=== PATIENT | female | born 1945 | race Caucasian/White ===

== ENCOUNTER 2018-04-19 09:49 | Emergency (ER) | payer OTHER ==
[~2018-04-19] VITALS: Ht 160 cm; Wt 63.5 kg
[~2018-04-19 09:49] MED LIST: ACET-53 PO; ACET-73 PO; ADAL40PE2 SQ; ATEN25TA PO; AZEL23SP BNOSTRILS; BALS750C PO; CALC ANTACID PO; CALCIUM/VITD PO; CROM10DR2 EACHEYE; CYAN10009 PO; DICL100G16 TP; DIET1CAP4 PO; FLUT16SP BNOSTRILS; FOLI0.4T2 PO; LAMO150T PO; LAMO25TA2 PO; LEVO75TA7 PO; LOPE2TAB57 PO; LORA0.5T PO; MEMA10TA21 PO; METH2.5T PO; OMEP40CA37 PO; SIMV20TA6 PO; TRAZ150T75 PO; [UNRECOGNIZED DRUG - OTHER] PO
[2018-04-19] MEDS ORDERED: AMLO5TAB2 PO (10:06)
[2018-04-19] MEDS ORDERED: THIO300C PO (10:06)
[2018-04-19] MEDS ORDERED: CALC-34 PO (11:19)
[2018-04-19] MEDS ORDERED: [UNRECOGNIZED DRUG - OTHER] PO (11:19)
[2018-04-19] MEDS ORDERED: ADAL40PE SQ (11:19)
[2018-04-19] MEDS ORDERED: LIDO30CR TP (11:19)
--- NOTE | 2018-04-19 11:52 | NUR ---
MSE COMPLETED, MALICK CALLED ETA FOR 1230PM . TRIP#[id number]. PT RESTING ,NO DISTRESS NOTED.
[2018-04-19] MEDS ORDERED: BENZ-38 PO (11:55)
[2018-04-19] MEDS ORDERED: ACET-53 PO (11:55)
[2018-04-19] MEDS ORDERED: TERB250T52 PO (11:55)
[2018-04-19 12:43] VITALS: BP 141/64
--- NOTE | 2018-04-19 12:44 | NUR ---
MSE COMPLETED, SBAR REPORT TO DIAGRAM CLERK. PT GIVEN ACI/COPY OF CHART. PT TOOK ALL BELONGINGS.
== END 2018-04-19 12:44 | disposition home or self-care (01) ==
LOC: ER 09:49
DX: S20.229A Contusion of unspecified back wall of thorax, initial encounter (principal); S09.90XA Unspecified injury of head, initial encounter; I10 Essential (primary) hypertension; K21.9 Gastro-esophageal reflux disease without esophagitis; E03.9 Hypothyroidism, unspecified; Z88.6 Allergy status to analgesic agent; Z88.5 Allergy status to narcotic agent; Z79.899 Other long term (current) drug therapy; Z79.891 Long term (current) use of opiate analgesic; Z79.52 Long term (current) use of systemic steroids; W01.0XXA Fall on same level from slipping, tripping and stumbling without subsequent striking against object, initial encounter; Y93.89 Activity, other specified; Y92.89 Other specified places as the place of occurrence of the external cause; Y99.8 Other external cause status
CPT/HCPCS: 70450; 72131; A4663

== ENCOUNTER 2019-11-04 16:32 | Emergency (ER) | payer OTHER, MEDICAID ==
[~2019-11-04] VITALS: Ht 160 cm; Wt 62.6 kg
[~2019-11-04 16:32] MED LIST changes: -ACET-53 PO; +ACET-54 PO; -ACET-73 PO; +ADAL40PE SQ; +AMLO5TAB9 PO; +BENZ-38 PO; +CALC-34 PO; -CALCIUM/VITD PO; -DIET1CAP4 PO; -LAMO150T PO; +LAMO150T6 PO; +LAMO25TA16 PO; -LAMO25TA2 PO; +LIDO30CR TP; -LOPE2TAB57 PO; -LORA0.5T PO; -MEMA10TA21 PO; +MEMA10TA56 PO; +OMEP40CA13 PO; -OMEP40CA37 PO; +SIMV-46 PO; -SIMV20TA6 PO; +TERB250T52 PO; +THIO300C PO; +[UNRECOGNIZED DRUG - OTHER] PO; -[UNRECOGNIZED DRUG - OTHER] PO
--- NOTE | 2019-11-04 16:50 | NUR ---
Patient BIB [id number] from [facility] for c/o high fever at facility. Patient A/Ox4. Speech is clear, speaks in complete sentences. No acute neuro deficits noted. Respiratory even and unlabored, no cough no sob. Denies any n/v/d.
[2019-11-04 17:22] LABS: BASOPHILS % (AUTO) 0.3 % (0.0-2.0); EOSINOPHILS # (AUTO) 0.1 K/uL (0.0-0.7); EOSINOPHILS % (AUTO) 0.8 % (0.0-7.0); HEMATOCRIT 34.9 % (31.2-41.9); HEMOGLOBIN 11.3 g/dL (10.9-14.3); LYMPHOCYTES # (AUTO) 0.3 K/uL (20.0-40.0); MEAN CORPUSCULAR HEMOGLOBIN 30.8 uug (24.7-32.8); MEAN CORPUSCULAR HGB CONC 33 g/dL (32.3-35.6); MEAN CORPUSCULAR VOLUME 94.9 fL (75.5-95.3); MONOCYTES # (AUTO) 0.7 K/uL (2.0-10.0); NEUTROPHILS # (AUTO) 8.5 K/uL (1.8-8.9); NEUTROPHILS % (AUTO) 88.9 % (38.5-71.5); PLATELET COUNT (AUTO) 206 K/uL (179-408); RED BLOOD CELL COUNT(AUTO) 3.68 MIL/uL (3.63-4.92); WHITE BLOOD COUNT (AUTO) 9.5 K/uL (3.8-11.8)
[2019-11-04 17:29] LABS: CARBON DIOXIDE 30 mmol/L (21-32); CHLORIDE 105 mmol/L (98-107); CREATININE 1.4 mg/dL (0.6-1.3); GLUCOSE 144 mg/dL (74-106); POTASSIUM 3.8 mmol/L (3.5-5.1); UREA NITROGEN, BLOOD 25 mg/dL (7-18)
[2019-11-04 17:35] LABS: ALANINE AMINOTRANSFERASE 13 U/L (14-59); ALKALINE PHOSPHATASE 87 U/L (50-136); ASPARTATE AMINOTRANSFERASE 15 U/L (15-37); BILIRUBIN,DIRECT 0.1 mg/dL (0.0-0.2); BILIRUBIN,TOTAL 0.3 mg/dL (0.2-1.0); TOTAL PROTEIN, SERUM 6.8 g/dL (6.4-8.2)
[2019-11-04] MEDS ORDERED: THIO300C PO (17:50)
[2019-11-04] MEDS ORDERED: AMLO5TAB9 PO (17:50)
[2019-11-04] MEDS ORDERED: ATEN50TA PO (17:50)
[2019-11-04] MEDS ORDERED: CALC-20 PO (17:51)
[2019-11-04] MEDS ORDERED: SIMV-46 PO (17:51)
[2019-11-04] MEDS ORDERED: TRAZ150T75 PO (17:51)
[2019-11-04] MEDS ORDERED: CROM10DR2 EACHEYE (17:51)
[2019-11-04] MEDS ORDERED: CALC400T29 PO (17:51)
[2019-11-04] MEDS ORDERED: FLUT16SP NS (17:51)
[2019-11-04] MEDS ORDERED: FOLI0.4T2 PO (17:51)
[2019-11-04] MEDS ORDERED: LAMO150T6 PO (17:51)
[2019-11-04] MEDS ORDERED: METH2.5T PO (17:51)
[2019-11-04] MEDS ORDERED: LOPE2CAP14 PO (17:51)
[2019-11-04] MEDS ORDERED: OMEP20TA5 PO (17:51)
[2019-11-04] MEDS ORDERED: DICL100G16 TP (17:51)
[2019-11-04] MEDS ORDERED: ADAL40PE SQ (17:51)
[2019-11-04] MEDS ORDERED: MEMA10TA PO (17:51)
[2019-11-04] MEDS ORDERED: CYAN250014 PO (17:51)
[2019-11-04] MEDS ORDERED: EUCA1LOZ37 MM (17:51)
[2019-11-04] MEDS ORDERED: LEVO25TA9 PO (17:51)
[2019-11-04] MEDS ORDERED: DEXT15DR6 OP (17:51)
[2019-11-04] MEDS ORDERED: MULT-213 PO (17:51)
[2019-11-04 17:52] LABS: *BILIRUBIN,URIN NEGATIVE (NEGATIVE); *BLOOD, URINE NEGATIVE (NEGATIVE); *CLARITY,URINE CLEAR (CLEAR); *COLOR,URINE YELLOW (YELLOW); *KETONES,URINE NEGATIVE (NEGATIVE); *UROBILINOGEN,URINE 0.2 E.U./dl (NORMAL); LEUKOCYTE ESTERASE ,URINE NEGATIVE (NEGATIVE); NITRITE, URINE NEGATIVE (NEGATIVE); UGLUCOSE NEGATIVE (NEGATIVE)
--- NOTE | 2019-11-04 18:00 | NUR ---
Sulema from [facility] contacted, she stated she will pass the case to the admitting team and have them call us back.
[2019-11-04] MEDS ORDERED: IV NORMAL SALINE 1000 ML BAG IV ONE ×2 (18:15)
[2019-11-04] MEDS ORDERED: CEFTRIAXONE 1 G in IV DEXTROSE 5% 50 ML IV ONE (18:15)
[2019-11-04] MEDS ORDERED: VANCOMYCIN IV 1,000 MG in IV DEXTROSE 5% 250 ML IV ONE (18:15)
--- NOTE | 2019-11-04 18:17 | NUR ---
Awaiting call back from [facility] for xfer information.
--- NOTE | 2019-11-04 18:17 | NUR ---
XOCHITL on the line with Dr. Jack from [facility]
[2019-11-04] MEDS ORDERED: CEFTRIAXONE /D5W 50ML IVPB **ER PYXIS IV ONE (18:40)
[2019-11-04] MEDS ORDERED: VANCOMYCIN IV 200 ML ONE (18:40)
--- NOTE | 2019-11-04 19:03 | NUR ---
Dr. Wood from [facility] on the line with XOCHITL.
--- NOTE | 2019-11-04 19:13 | NUR ---
received hand off and sbar from outgoing day shift DX FEVER ASSESSMENT (ALEXIS) ON THE LINE WITH XOCHITL BETANCOURT PENDING CALL BACK FROM RECEIVING MD FOR TRANSFER TO [facility] PT TEMP 99.7F PT IS AOX4 ABLE TO SPEAK CLEAR AND COMPLETE SENTENCES STATES SHE IS NOT SHIVERING ANYMORE IVF INFUSING AND PATENT, WITH FLUIDS AND ABX Addendum: 11/04/19 at 1931 by JULIANA IVF INFUSING AND not PATENT, WITH FLUIDS AND ABX +SIGNS OF INFILTRATION
--- NOTE | 2019-11-04 19:14 | NUR ---
Report given to GODFREY Conner
--- NOTE | 2019-11-04 19:14 | NUR ---
D/C IV [place] ON L AC APPLIED WARMCOMPRESSTO AFFECTED SITE NOTED +SIGNSOF INFILTRATION ON L AC +EDEMA ANDERYTHEMA +TENDERNESS TO SITE
--- NOTE | 2019-11-04 20:02 | NUR ---
DARRYL CALL BACK: [phone] RECEIVEING MD : DR LIO HEATON FAST FOOD SHIFT LEAD AT 2850
--- NOTE | 2019-11-04 20:09 | NUR ---
HAND OFF GIVEN TO [place] JOSEUT (ANTONY) ETA TEACHERS AIDE AT 2130 DX FEVER RECEIVING MD : DR VACA RA NAD NSR R AC G20 INFUSING 2ND BAG OF IVFLUIDS AND PIGGYBACK ABX (VANCO) TEMP AT 99.7f KEPT WARM DRY AND COMFORTABLE
--- NOTE | 2019-11-04 21:12 | NUR ---
[facility] ETA DRAFTING DETAILER AT 1340
--- NOTE | 2019-11-04 21:55 | NUR ---
TRANSPPORTED TO [facility] PRN ALS IVF INFUSING STILL TO R AC G20 (2ND BAG OF SALINE, 500ML)
== END 2019-11-04 22:00 | disposition short-term general hospital (02) ==
LOC: ER 16:44
DX: A41.9 Sepsis, unspecified organism (principal); E87.2 Acidosis; R50.9 Fever, unspecified; K21.9 Gastro-esophageal reflux disease without esophagitis; F31.9 Bipolar disorder, unspecified; E03.9 Hypothyroidism, unspecified; I12.9 Hypertensive chronic kidney disease with stage 1 through stage 4 chronic kidney disease, or unspecified chronic kidney disease; N18.3 Chronic kidney disease, stage 3 (moderate); Z88.5 Allergy status to narcotic agent; Z88.8 Allergy status to other drugs, medicaments and biological substances; Z79.899 Other long term (current) drug therapy
CPT/HCPCS: 36415; 71045; 80048; 80076; 81001; 83605 ×2; 84484; 85025; 85730; 87040 ×2; 87086; 87400; 93005; 96365; 96366; 96368; 99291; J0696; J3370; 70030-TC; A4663; C1758; J7030